=== PATIENT | female | born 1960 | race Caucasian/White ===

== ENCOUNTER 2024-01-01 14:56 | Emergency (ER) | payer BC, SELFPAY ==
[2024-01-01 14:57] VITALS: PULSE 66; TEMP 36.7; O2SAT 99; BMI 24.2
--- NOTE | 2024-01-01 15:31 | ED_ITS ---
HPI - Allergic Reaction General: Chief complaint: Allergic Reaction Stated complaint: wasp sting, sob Time Seen by Provider: 01/01/24 14:58 History of Present Illness: HPI narrative: 63-year-old female presents emergency de partment after being stung by a wasp on her right forearm. 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 She states she did utilize her EpiPen and then contacted EMS for transport to the emergency department. The patient also received 0.3 mg of intramuscular epinephrine from EMS as well as 50 mg of Benadryl by mouth. Patient states she initially applied a cold compress to the area where she was stung and states that the area of redness and urticaria has remained only at her right forearm and has improved since she auto injected her epinephrine pen. She denies nausea vomiting fevers chills or night sweats. She denies shortness of breath or chest pain. Review of Systems General: Reports: 10 or more systems reviewed and unremarkable except in HPI and below Skin/Breast: Reports: erythema and other (Urticaria to the right forearm) Physical Exam Narrative: EXAM NARRATIVE: Constitutional: the patient appears well nourished and of normal development. Vital signs as documented. No acute distress at present. Alert and oriented-to person, place, time and situation. Head, eyes, ears, nose, mouth, throat: Normocephalic, atraumatic. Pupils-equal, round, reactive to light. No scleral icterus. Normal-appearing external ears. Normal appearing nasal turbinates, no drainage. No obvious oral lesions, posterior oropharynx without erythema or exudates. Neck: Supple, trachea is midline, no lymphadenopathy, no jugular venous distension, thyromegaly, or carotid bruits. Carotid upstrokes are brisk bilaterally. Lungs: clear to auscultation to all lung ingram. Symmetrical rise and fall of chest, no obvious signs of increased work of breathing at present. No wheezing or stridor. Cardiac: Regular rate and rhythm, positive S1, S2. No murmurs, rubs or gallops that I can appreciate Abdomen: Soft, non-tender to palpation, normal active bowel sounds to all quadrants. No palpable masses, no organomegaly and abdominal bruits. Extremities: 2+ pulses in the upper extremities that are equal bilaterally, 2+ pulses in the lower extremities that are equal bilaterally. Non-edematous. Moves all extremities well, sensation to all extremities are noted. Skin: Warm, dry, intact. 5 cm x 7 cm area of redness to the right forearm ventral aspect. Course Vital Signs: Vital signs: Vital Signs Temperature 98.0 F 01/01/24 14:57 Pulse Rate 66 01/01/24 15:35 Respiratory Rate 16 01/01/24 15:35 Blood Pressure 169/87 01/01/24 15:35 Pulse Oximetry 99 01/01/24 15:35 Oxygen Delivery Me thod Room Air 01/01/24 14:57 MDM - Allergic Reaction Medical Decision Making Physical exam completed and documented I will provide IV Solu-Medrol and Reglan to the patient. I will also provide her a refill on her epinephrine autoinjector and written prescription for corticosteroids and Zyrtec at the time of discharge. 15:41 no additional signs of allergic reaction the erythema and hives have subsided on the patient's right forearm she is in no acute distress her oxygen level was remained at acceptable level and is currently 99% on room air. She is in no acute distress I did discuss follow-up with her as well as advised her of where her prescriptions were sent. Medical Records I reviewed the patient's medical records. No radiology studies performed this visit Discharge Plan Discharge Patient Disposition: Home Clinical Impression: Allergic reaction to insect sting, Urticaria Condition: Stable Prescriptions: New epinephrine 0.3 mg/0.3 mL auto-injector 0.3 mg IM Q10M PRN (Reason: anaphylaxis) Qty: 2 0RF Rx Instructions: for 2 doses prednisone 20 mg tablet 40 mg PO DAILY 5 Days Qty: 10 0RF cetirizine 10 mg tablet 10 mg PO Q12H PRN (Reason: Hives/allergic reaction) Qty: 20 0RF Discharge Orders: Discharge ED (Routine); Ordered 01/01/24 Ordered By: Jimmy Simmons Discharge Diet: Usual diet Discharge Activity: Resume usual activity Patient Instructions: Opioid Safety, Pain Management Activity Restrictions/Additional Instructions: Activity Restrictions/Additional Instructions: Thank you for choosing [facility] for your healthcare needs today. Please realize that you were seen in the Emergency Department and that we are providing you with an emergency medical screening exam and this may not be a complete and all inclusive of all the testing and or medical work-up that you may need to determine your ailment or severity of your illness. It is very important that you follow-up as instructed with your Primary care provider or Specialist for additional evaluation and to discuss your medical treatment plan. You may return to the Emergency Department should you have concerns or if your condition changes or worsens in any way. Coding Level of Care Code ED Ethnic Origins Teacher for Cheng Muller
[2024-01-01] MEDS: metoclopramide 5 mg/mL SDV 2 mL 10 MG IVP (15:32)
[2024-01-01] MEDS: methylPREDNISolone sod succ 125 mg/2 mL INJ 60 MG IVP (15:33)
[2024-01-01 15:35] VITALS: BP 169/87; PULSE 66; RESP 16; O2SAT 99
== END 2024-01-01 16:14 | disposition home or self-care (01) ==
PROVIDERS: Emergency Provider Internal Medicine; PCP Internal Medicine Rheumatology
DX: T63.461A Toxic effect of venom of wasps, accidental (unintentional), initial encounter (principal); L50.9 Urticaria, unspecified
CPT/HCPCS: 96374; 96375; 99284; J2765; J2919

== ENCOUNTER 2025-01-08 17:42 | Emergency (ER) | payer BC, SELFPAY ==
[2025-01-08] VITALS (7 sets, daily range): BP systolic 104–124; BP diastolic 56–68; PULSE 83–93; RESP 18; TEMP 36.8; O2SAT 94–98; BMI 27.4
--- NOTE | 2025-01-08 18:17 | ED_ITS ---
HPI - Nausea/Vomiting/Diarrhea 2 General: Chief complaint: Nausea/Vomiting/Diarrhea Stated complaint: N/V Time Seen by Provider: 01/08/25 17:52 History of Present Illness: 64-year-old female who presents to the e mergency room with complaints of nausea vomiting she relates to some food she ate last night. She had no nataliia hematemesis or coffee-ground emesis. She was hospitalized a week ago for A-fib with RVR she was at [facility] she had EGD and colonoscopy because she was anemic she was given blood endoscopy was negative she was started on Eliquis and diltiazem for her A-fib RVR. She has not taken either of those today. She denies any known previous upper GI bleeds. She denies chest pain mild abdominal discomfort vague cramping at this time. Associated nausea: Yes Associated symtoms: Reports nausea; Denies chest pain or dysuria Related Data Previous Rx's ?Medication ?Instructions ?Recorded cetirizine 10 mg tablet 10 mg PO Q12H PRN Hives/andie rgic 01/01/24 reaction #20 tabs epinephrine 0.3 mg/0.3 mL 0.3 mg (0.3 mL) IM Q10M PRN 01/01/24 injection, auto-injector anaphylaxis #2 ea promethazine 25 mg tablet 25 mg PO Q6H PRN nausea and 01/08/25 vomiting #20 tabs Allergies Allergy/AdvReac Type Severity Reaction Status Date / Time hornet venom Allergy ALGY-Anaphy Verified 01/01/24 15:39 laxis lamotrigine (From Lamictal) Allergy ADR-Photose Verified 01/01/24 15:39 nsitivity Sulfa (Sulfonamide Allergy ALGY-Anaphy Verified 01/01/24 15:39 Antibiotics) laxis venom-honey bee Allergy ALGY-Anaphy Verified 01/01/24 15:39 laxis venom-wasp Allergy ALGY-Anaphy Verified 01/01/24 15:39 laxis Review of Systems 2 Const: Denies: fever(s) or chills Card: Denies: chest pain Resp: Denies: dyspnea GI: Reports: abdominal pain, nausea, vomiting and diarrhea : Denies: dysuria, urinary frequency or urinary urgency Musc: Denies: neck pain or back pain Skin/Breast: Denies: rash Physical Exam 2 Const: GENERAL APPEARANCE: cooperative ORIENTATION/CONSCIOUSNESS: Yes awake, Yes oriented to person, Yes oriented to place and Yes oriented to time HENMT: COMMON NORMALS: normocephalic, atraumatic and hearing grossly normal bilaterally HEAD & SCALP: normocephalic and atraumatic Resp: COMMON NORMALS: normal respiratory effort, No retractions, No use of accessory muscles and clear to auscultation bilaterally AUSCULTATION: clear to auscultation bilaterally Cardio: COMMON NORMALS: regular rate, regular rhythm and No murmurs present (Cardio) RATE: regular rate RHYTHM: regular rhythm GI: COMMON NORMALS: Soft to palpation and No hepatosplenomegaly present A USCULTATION: Yes normoactive bowel sounds PALPATION: Yes Soft to palpation, No Tenderness to palpation present (GI), No Guarding due to palpation present (GI) and Yes No hepatosplenomegaly present Extremity: COMMON NORMALS: normal to inspection, capillary refill normal, no clubbing, cyanosis or edema, no calf tenderness and no pedal edema Neuro: SENSORIUM/ORIENTATION: Yes oriented to person, Yes oriented to place and Yes oriented to time Skin: COMMON NORMALS: no rashes or lesions noted GENERAL SKIN EXAM: no rashes or lesions noted Course 2 Vital Signs: Vital signs: Vital Signs Temperature 98.2 F 01/08/25 17:47 Pulse Rate 85 01/08/25 23:03 Respiratory Rate 18 01/08/25 17:47 Blood Pressure 121/65 01/08/25 23:03 Pulse Oximetry 95 01/08/25 23:03 Oxygen Delivery Me thod Room Air 01/08/25 18:30 MDM - Nausea/Vomiting/Diarrhea Medical Decision Making Labs and imaging reviewed no significant findings. Patient feels better after IV fluids. Supportive cares promethazine as needed clear liquid diet for the next 24 hours and advance as tolerated return if has further problems Medical Records I reviewed the patient's medical records. Lab Data I reviewed the patient's lab results. 01/08/25 19:30 01/08/25 20:52 Laboratory Results WBC 4.90 10^3/uL (3.29-11.43) 01/08/25 19:30 RBC 4.09 10^6/uL (3.85-5.65) 01/08/25 19:30 Hgb 10.80 g/dL (11.27-16.99) L 01/08/25 19:30 Hct 37.1 % (36-47) 01/08/25 19: MCV 90.7 fl (85-98) 01/08/25 19:30 MCH 26.4 pg (27-33) L 01/08/25 19: MCHC 29.1 g/dL (30-55) L 01/08/25 19: RDW 25.0 % (12.1-15.1) H 01/08/25 19: Plt Count 290 10^3/cmm (157-399) 01/08/25 19: MPV 10.4 fL (7.4-10.4) 01/08/25 19: Neut % (Auto) 92.7 % 01/08/25 19: Lymph % (Auto) 5.1 % 01/08/25: [place] % (Auto) 1.8 % 01/08/25: Eos % (Auto) 0.0 % 01/08/25: Baso % (Auto) 0.2 % 01/08/25: Neut # (Auto) 4.54 10^3/uL (1.8-7.7) 01/08/25 19: Lymph # (Auto) 0.3 10^3/uL (0.8-4.8) L 01/08/25 19:30 [place] # (Auto) 0.1 10^3/uL (0.2-0.9) L 01/08/25: Eos # (Auto) 0.0 10^3/uL (0.0-0.8) 01/08/25 19: Baso # (Auto) 0.0 10^3/uL (0.0-0.1) 01/08/25: Nucleated RBC % (auto) 0 % 01/08/25: Nucleated RBCs # 0.0 /100WBC 01/08/25 19: Sodium 140 mmol/L (136-145) 01/08/25 20:52 Potassium 3.6 mmol/L (3.5-5.1) 01/08/25 20:52 Chloride 103 mmol/L (98-107) 01/08/25 20:52 Carbon Dioxide 25 mmol/L (22-29) 01/08/25 20:52 Anion Gap 15.6 (5-19) 01/08/25 20:52 BUN 13 mg/dL (8-23) 01/08/25 20:52 Creatinine 0.6 mg/dL (0.5-0.9) 01/08/25 20:52 GFR Calculation 100.6 mL/min (90-130) 01/08/25 20:52 Glucose 109 mg/dL (65-115) 01/08/25 20:52 Calculated Osmolality 291 mOsm/kg (285-295) 01/08/25 20:52 Calcium 8.5 mg/dL (8.5-10.5) 01/08/25 20:52 Total Bilirubin 0.3 mg/dL (0.15-1.2) 01/08/25 20:52 AST 20 U/L (0-32) 01/08/25 20:52 ALT 20 U/L (0-33) 01/08/25 20:52 Alkaline Phosphatase 106 U/L (35-105) H 01/08/25 20:52 Total Protein 6.7 g/dL (6.6-8.7) 01/08/25 20: Albumin 4.0 g/dL (3.5-5.2) 01/08/25 20:52 Globulin 2.7 g/dL (1.3-4.6) 01/08/25 20:52 Urine Color Yellow (Yellow) 01/08/25 20:30 Urine Appearance Clear (CLEAR) 01/08/25 20:30 Urine pH 7.0 (5-7) 01/08/25 20:30 Ur Specific [place] 1.018 (1.005-1.030) 01/08/25 20:30 Urine Protein Negative (Negative) 01/08/25 20:30 Urine Glucose (UA) Negative (Normal) 01/08/25 20: Urine Ketones Negative (Negative) 01/08/25 20: Urine Blood Negative (Negative) 01/08/25 20: Urine Nitrate Negative (Negative) 01/08/25 20:30 Urine Bilirubin Negative (Negative) 01/08/25 20: Urine Urobilinogen 1.0 mg/dL (Negative) 01/08/25 20:30 Ur Leukocyte Esterase Negative (Negative) 01/08/25 20:30 Urine RBC 0-2 /hpf (0-2) 01/08/25 20:30 Urine WBC 0-5 /hpf (0-5) 01/08/25 20:30 Ur Squamous Epith Cells 0-5 /hpf (0-5) 01/08/25 20:30 Amorphous Sediment Not Reportable 01/08/25 20:30 Urine Bacteria None seen /hpf (NONE) 01/08/25 20:30 Hyaline Casts 0-4 /lpf H 01/08/25 20:30 No radiology studies performed this visit Discharge Plan Discharge Patient Disposition: Home Clinical Impression: Food poisoning Condition: Stable Prescriptions: New promethazine 25 mg tablet 25 mg PO Q6H PRN (Reason: nausea and vomiting) Qty: 20 0RF No Action epinephrine 0.3 mg/0.3 mL auto-injector 0.3 mg IM Q10M PRN (Reason: anaphylaxis) Qty: 2 0RF Rx Instructions: for 2 doses cetirizine 10 mg tablet 10 mg PO Q12H PRN (Reason: Hives/allergic reaction) Qty: 20 0RF Discharge Orders: Discharge ED (Routine); Ordered 01/08/25 Ordered By: Aristeo Matias Referrals: Kyle Mann MD [Primary Care Provider, Rheumatology] Discharge Diet: Clear Liquid Discharge Activity: Resume usual activity Patient Instructions: Opioid Safety, Pain Management Activity Restrictions/Additional Instructions: Thank you for choosing [facility] for your healthcare needs today. It is very important that you follow up as instructed or that you return to the Emergency Department should you have concerns or if your condition changes or worsens in any way. You were seen in the emergency room with persistent nausea and vomiting. This is likely caused by something you had eaten. Laboratory test did not show significant abnormalities. You did have some mild anemia which appears to be chronic. Recommend that you only ingest clear liquid diet for the next 24 to 48 hours and advance as tolerated. You are given promethazine to use as needed for persistent nausea vomiting symptoms. Print Language: Ethiopian Coding Level of Care Code ED Out Of School Hours Care Worker for Cheng Muller
[2025-01-08] MEDS: sodium chloride 0.9% 1,000 ML 999 ML IV (18:30)
[2025-01-08] MEDS: ondansetron 2 mg/ML SDV 2 mL 4 MG IVP (18:32)
[2025-01-08 19:37] LABS: Basophils % 0.2 %; Hematocrit 37.1 % (36-47); Lymphocytes # 0.3 10^3/uL (0.8-4.8); Lymphocytes % 5.1 %; Mean Corpuscular HGB Conc 29.1 g/dL (30-55); Mean Corpuscular Hemoglobin 26.4 pg (27-33); Mean Corpuscular Volume 90.7 fl (85-98); Mean Platelet Volume 10.4 fL (7.4-10.4); Monocytes # 0.1 10^3/uL (0.2-0.9); Monocytes % 1.8 %; Neutrophils # 4.54 10^3/uL (1.8-7.7); Neutrophils % 92.7 %; Nucleated Red Blood Cells % 0 %; Platelet Count 290 10^3/cmm (157-399); Red Blood Count 4.09 10^6/uL (3.85-5.65)
[2025-01-08 20:39] LABS: Bilirubin Urine Negative (Negative); Blood Urine Negative (Negative); Glucose Urine UA Negative (Normal); Ketones Urine Negative (Negative); Leukocyte Esterase Urine Negative (Negative); Nitrate Urine Negative (Negative); Protein Urine Negative (Negative); Specific Gravity, Urine 1.018 (1.005-1.030); Urine Appearance Clear (CLEAR); Urine Color Yellow (Yellow)
[2025-01-08 20:41] LABS: Add Urine Microscopic? YES; Bacteria Urine None Seen /hpf; Hyaline Casts Urine 0-4 /lpf; RBC Urine 0-2 /hpf (0-2); Squamous Epithelial Cell Urine 0-5 /hpf (0-5); WBC Urine 0-5 /hpf (0-5)
[2025-01-08 21:21] LABS: Alanine Aminotransferase 20 U/L (0-33); Alkaline Phosphatase 106 U/L (35-105); Aspartate Amino Transferase 20 U/L (0-32); Blood Urea Nitrogen 13 mg/dL (8-23); Calcium 8.5 mg/dL (8.5-10.5); Carbon Dioxide 25 mmol/L (22-29); Chloride 103 mmol/L (98-107); Creatinine Clr Calc Pharmacy 99.3291; Globulin 2.7 g/dL (1.3-4.6); Glomerular Filtration Rate 100.6 mL/min (90-130); Glucose 109 mg/dL (65-115); Osmolality Calculated 291 mOsm/kg (285-295); Sodium 140 mmol/L (136-145); Total Bilirubin 0.3 mg/dL (0.15-1.2); Total Protein 6.7 g/dL (6.6-8.7)
[2025-01-08 21:26] LABS: Anion Gap 15.6 (5-19); Potassium 3.6 mmol/L (3.5-5.1)
[2025-01-08] MEDS: ketorolac 30 mg/mL INJ 15 MG IVP (21:55)
== END 2025-01-08 21:50 | disposition home or self-care (01) ==
PROVIDERS: Emergency Provider Family Medicine; PCP Internal Medicine Rheumatology
DX: A05.9 Bacterial foodborne intoxication, unspecified (principal)
CPT/HCPCS: 80053; 81001; 85025; 96361; 96374; 96375; 99284; J1885; J2405; J7030